=== PATIENT | male | born 1980 | race African-American/Black ===

== ENCOUNTER 2017-07-19 11:47 | Emergency (ER) | payer OTHER ==
--- NOTE | 2017-07-19 12:12 | ED Physician Documentation ---
Upper Extremity Problem - HISTORIAN Historian: patient - HPI Stated Complaint: R Hand pain Chief Complaint: Upper Extremity Problem Additional Information: Right forearm and hand aching pain for 2 1/2 years. Worse in the morning and gets better by afternoon. Shaking sometimes helps it. Right handed. Denies injury. Says he was in long-term at the time. Sleeps prone with both arms folded under chest, bu only right arm bothers him. No other treatment and has not seen anyone for this. 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 Thinks he has blood clots. - ROS CONST: no problems - PAST HX Past History: none Allergies/Adverse Reactions: Allergies Allergy/AdvReac Type Severity Reaction Status Date / Time No Known Allergies Allergy Verified 07/19/17 12:01 Home Medications: Ambulatory Orders Medication Instructions Recorded NK [NK] 07/19/17 - SOCIAL HX Smoking History: cigarettes - FAMILY HX Family History: no significant history - VITAL SIGNS Vital Signs: Vital Signs Temp Pulse Resp BP Pulse Ox 97.4 F L 66 16 124/74 99 07/19/17 11:55 07/19/17 11:55 07/19/17 11:55 07/19/17 11:55 07/19/17 11:55 - REVIEWED ASSESSMENTS Nursing Assessment Reviewed: Yes Vitals Reviewed: Yes Upper Extremity Problem - EXAM General Appearance: no acute distress, alert Skin: warm/dry, normal color Shoulder Exam: normal inspection, no evidence of injury, normal ROM Elbow/Forearm Exam: normal inspection, non-tender, no evidence of injury, normal ROM Wrist Exam: normal inspection, non-tender, no evidence of injury (Ne Tinel's) Hand Exam: normal inspection, non-tender, no evidence of injury Neuro/Tendon: normal sensation, normal motor functions, normal tendon functions , no evidence tendon injury EENT: eye inspection normal, ENT inspection normal Vascular: no vascular compromise (right radial pulse 2+) Peripheral: sensation nml, motor nml Central: CN's nml as tested, motor nml, sensation nml Respiratory: no resp. distress Discharge Clincal Impression: Arm pain Qualifiers: Laterality: right Qualified Code(s): M79.601 - Pain in right arm Referrals: Primary Doctor,No [Primary Care Provider] - 2 Days Condition: Fair Disposition: HOME, SELF-CARE Decision to Admit: NO Decision Time: 12:15
[2017-07-19 12:51] VITALS: BP 124/74
== END 2017-07-19 12:22 | disposition home or self-care (01) ==
LOC: ED 11:47
DX: M79.601 Pain in right arm (principal)
CPT/HCPCS: 99282

== ENCOUNTER 2017-08-26 21:48 | Emergency (ER) | payer SELFPAY ==
--- NOTE | 2017-08-26 21:57 | ED Physician Documentation ---
General Adult - HISTORIAN Historian: patient - HPI Stated Complaint: "hot flashes" Chief Complaint: General Adult Onset: days ago (5) Timing: still present, worse Severity: mild Further Comments: yes (he reports that he started to feel bad about 5 days ago with congestion, fever, chills and fatigue. He has been taking OTC meds with aide in fever but is still having chills. He states he has some swollen lymph nodes in his throat and his groin he felt today. No urinary symtpoms. No N/V/D) - ROS CONST: fever, sweating EYES/ENT: sore throat, nasal drainage, nasal congestion CVS/RESP: cough GI/: denies: abdominal pain, vomiting, nausea MS/SKIN/LYMPH: denies: rash NEURO/PSYCH: headache - PAST HX Past History: none Other History: none Surgeries/Procedures: none Immunizations: UTD Allergies/Adverse Reactions: Allergies Allergy/AdvReac Type Severity Reaction Status Date / Time No Known Allergies Allergy Verified 07/19/17 12:01 Home Medications: Ambulatory Orders Medication Instructions Recorded NK [NK] 07/19/17 - SOCIAL HX Smoking History: cigarettes Alcohol Use: none Drug Use: none - FAMILY HX Family History: No - VITAL SIGNS Vital Signs: Vital Signs Temp Pulse Resp BP Pulse Ox 124/74 07/19/17 12:22 - REVIEWED ASSESSMENTS Nursing Assessment Reviewed: Yes Vitals Reviewed: Yes General Adult Physical Exam - PHYSICAL EXAM GENERAL APPEARANCE: no distress EENT: no signs of dehydration, pharyngeal erythema, TM erythema (left ear ), other (Sinus pain with palpation ) NECK: normal inspection RESPIRATORY: no resp distress, chest non-tender, wheezes (expiratory ) CVS: reg rate & rhythm, heart sounds normal, equal pulses, no murmur ABDOMEN: soft, no organomegaly, normal bowel sounds, no distension, non-tender BACK: normal inspection SKIN: warm/dry, normal color, other (no palpable lymph nodes at this time ) EXTREMITIES: non-tender, edema NEURO: oriented X3, CN's nml as tested, motor nml, sensation nml, mood/affect nml Discharge Clincal Impression: Sinusitis Qualifiers: Sinusitis location: frontal Chronicity: acute Recurrence: not specified as recurrent Qualified Code(s): J01.10 - Acute frontal sinusitis, unspecified Referrals: Primary Doctor,No [Primary Care Provider] - 2 Days Additional Instructions: 1. Augmentin 875 mg/125 mg Take 1 by mouth BID x 10 days 2. Medrol Dose pack as directed 3. continue OTC meds for symptom control 4. Increase fluids 5. STOP smoking 6. See PCP in 10 days for follow up on symptoms 7. Return to ER for any concerns Condition: Stable Disposition: 01 HOME, SELF-CARE Decision to Admit: NO Date of Decison to Admit: 08/26/17 Decision Time: 22:19
[2017-08-26] MEDS ORDERED: AMOXICILLIN/POT 875/125 1 EACH PO ONE (22:19)
[2017-08-26] MEDS ORDERED: predniSONE 20 MG TABLET PO ONE (22:20)
[2017-08-26 22:22] VITALS: BP 130/73
== END 2017-08-26 22:29 | disposition home or self-care (01) ==
LOC: ED 21:48
DX: J01.10 Acute frontal sinusitis, unspecified (principal)
CPT/HCPCS: 99282

== ENCOUNTER 2018-02-28 08:08 | Emergency (ER) | payer SELFPAY ==
--- NOTE | 2018-02-28 08:15 | ED Physician Documentation ---
General Adult - HISTORIAN Historian: patient - HPI Stated Complaint: sores in mouth and privates Chief Complaint: General Adult Onset: days ago (2) Timing: still present Severity: moderate Further Comments: yes (he claims he has herpes. He states he has sores on his penis and in his mouth. He has a PCP appt 03.15.2018. He has taken acyclovir or valtrex occasionally and he did well on both. No new sexual partners) - ROS CONST: no problems MS/SKIN/LYMPH: rash - PAST HX Past History: other (herpes ) Immunizations: UTD Allergies/Adverse Reactions: Allergies Allergy/AdvReac Type Severity Reaction Status Date / Time No Known Allergies Allergy Verified 02/28/18 08:25 Home Medications: Ambulatory Orders Medication Instructions Recorded NK 07/19/17 - SOCIAL HX Smoking History: non-smoker Alcohol Use: none Drug Use: none - FAMILY HX Family History: No - VITAL SIGNS Vital Signs: Vital Signs Temp Pulse Resp BP Pulse Ox 130/73 08/26/17 22:45 - REVIEWED ASSESSMENTS Nursing Assessment Reviewed: Yes Vitals Reviewed: Yes General Adult Physical Exam - PHYSICAL EXAM GENERAL APPEARANCE: no distress EENT: eye inspection normal NECK: normal inspection RESPIRATORY: no resp distress, chest non-tender, breath sounds normal CVS: reg rate & rhythm, heart sounds normal ABDOMEN: soft, no distension BACK: normal inspection SKIN: warm/dry, other (several small open areas on the inside upper lip and genitals ) NEURO: oriented X3 Discharge Clincal Impression: Herpes Referrals: Primary Doctor,No [Primary Care Provider] - 2 Days Comments: 1. Valtrex 1 gm daily x 5 days 2. Safe sex 3. Follow up with PCP as scheduled 4. Return to ER for any concerns Condition: Stable Disposition: 01 HOME, SELF-CARE Decision to Admit: NO Date of Decison to Admit: 02/28/18 Decision Time: 08:30
[2018-02-28 08:24] VITALS: BP 129/69
== END 2018-02-28 08:33 | disposition home or self-care (01) ==
LOC: ED 08:08
DX: B00.9 Herpesviral infection, unspecified (principal)
CPT/HCPCS: 99281; 99282

== ENCOUNTER 2018-04-08 23:07 | Emergency (ER) | payer OTHER ==
[2018-04-08 23:33] VITALS: BP 138/81
[2018-04-08] MEDS ORDERED: KETOROLAC TROMETHAMINE 60 MG/2 ML VIAL IM ONE (23:36)
[2018-04-08] MEDS ORDERED: BACLOFEN 10 MG TABLET PO ONE (23:37)
--- NOTE | 2018-04-08 23:39 | ED Physician Documentation ---
General Adult - HISTORIAN Historian: patient - HPI Stated Complaint: NECK PAIN Chief Complaint: General Adult Further Comments: yes (37 year old male patient presents with right side neck pain and shoulder discomfort. Patient reports on going pain intermittenly for the past 6 months. Was seen in Oct at [facility] for similar pain, prescriptions for naproxen and flexeril.) - ROS CONST: no problems EYES/ENT: none CVS/RESP: none GI/: none NEURO/PSYCH: denies: headache - PAST HX Past History: other (lipoma - right thorasic back area. ) Allergies/Adverse Reactions: Allergies Allergy/AdvReac Type Severity Reaction Status Date / Time No Known Allergies Allergy Verified 02/28/18 08:25 Home Medications: Ambulatory Orders Medication Instructions Recorded NK 07/19/17 - SOCIAL HX Smoking History: cigarettes - FAMILY HX Family History: No - VITAL SIGNS Vital Signs: Vital Signs Temp Pulse Resp BP Pulse Ox 98.4 F 89 16 138/81 96 04/08/18 23:07 04/08/18 23:07 04/08/18 23:07 04/08/18 23:07 04/08/18 23:07 - REVIEWED ASSESSMENTS Nursing Assessment Reviewed: Yes Vitals Reviewed: Yes ED Results Lab/Radiology - Orders Orders: ED Orders Category Date Time Status Baclofen [Lioresal] Med 04/08/18 23:37 Once 20 mg PO NOW ONE Ketorolac Tromethamine [Toradol] Med 04/08/18 23:36 Once 60 mg IM NOW ONE General Adult Physical Exam - PHYSICAL EXAM GENERAL APPEARANCE: mild distress EENT: eye inspection normal, BREANNE RESPIRATORY: no resp distress, chest non-tender, breath sounds normal CVS: reg rate & rhythm, heart sounds normal, equal pulses, no murmur, no gallop, PMI nml, no JVD, no friction rub, 24 ABDOMEN: soft, no organomegaly, normal bowel sounds, no abdominal bruit, no d istension BACK: normal inspection, no CVA tenderness, other (muscle tenderness in right paraspinous muscles at C6-T3. LIpoma noted in right thorasic area at T7-8; 8 cm, soft, mobile.) SKIN: normal color, warm/dry, NR, INT, PAL, DR EXTREMITIES: non-tender, normal range of motion, no evidence of injury, no edema, J, [employer] NEURO: oriented X3, motor nml, sensation nml, mood/affect nml Discharge Clincal Impression: Myalgia, Muscle spasm Referrals: Primary Doctor,No [Primary Care Provider] - 2 Days Additional Instructions: Ice Rest You may use Tylenol every 4hour as needed for pain. Limit your dose to less than 4 G per day. Do not take ibuprofen, aleve, naproxen or any other NSAID while you are on toradol. (ketoralac) You may want to try massage, over the counter lidocaine patches, biofreeze, naz vega or aspercream . If you are continuing to have significant pain on day 3-4; see your PCP for re- evaluation and additional xrays. Condition: Stable Disposition: 01 HOME, SELF-CARE Decision to Admit: NO Decision Time: 23:42
== END 2018-04-08 23:54 | disposition home or self-care (01) ==
LOC: ED 23:07
DX: M79.10 Myalgia, unspecified site (principal)
CPT/HCPCS: 96372; 99282; 99283; J1885

== ENCOUNTER 2018-11-11 17:28 | Emergency (ER) | payer SELFPAY ==
--- NOTE | 2018-11-11 17:30 | ED Physician Documentation ---
General Adult - HISTORIAN Historian: patient - HPI Stated Complaint: fever, fatigue and body aches Chief Complaint: General Adult Onset: days ago (5) Timing: still present Severity: moderate Further Comments: yes (HE states body aches and fever started 5 days ago. He has cough) - ROS CONST: fever, sweating EYES/ENT: none GI/: denies: abdominal pain MS/SKIN/LYMPH: other (area of skin concern on right lateral chest ) - PAST HX Past History: none Immunizations: UTD Allergies/Adverse Reactions: Allergies Allergy/AdvReac Type Severity Reaction Status Date / Time No Known Allergies Allergy Verified 11/11/18 18:20 Home Medications: Ambulatory Orders Medication Instructions Recorded Ranitidine HCl [Zantac] 75 mg PO 11/11/18 - SOCIAL HX Smoking History: non-smoker Alcohol Use: none Drug Use: none - FAMILY HX Family History: No - VITAL SIGNS Vital Signs: Vital Signs Temp Pulse Resp BP Pulse Ox 138/81 04/09/18 00:12 - REVIEWED ASSESSMENTS Nursing Assessment Reviewed: Yes Vitals Reviewed: Yes Progress - Progress Progress: 2000: discussed results and plan - he is agreeable DG ED Results Lab/Radiology - Radiology Radiology Impressions: CHEST 1 VIEW HISTORY: SOB, CHEST PAIN. FINDINGS: Erect AP portable chest x-ray dated November 11, 2018 at 1743 with 2 images obtained demonstrates lungs to be clear of focal infiltrates and expanded bilaterally. Cardiac silhouette and bony thorax are unremarkable. IMPRESSION: No active intrathoracic disease seen. Electronically signed on Nov 11, 2018 6:26:44 PM CDT by: Osman Galan General Adult Physical Exam - PHYSICAL EXAM GENERAL APPEARANCE: no distress EENT: eye inspection normal, pharynx normal, no signs of dehydration NECK: normal inspection RESPIRATORY: no resp distress, chest non-tender, breath sounds normal CVS: reg rate & rhythm, heart sounds normal ABDOMEN: soft, normal bowel sounds, no distension BACK: normal inspection, no CVA tenderness SKIN: warm/dry, other (4 cm x 4 cm red raised area with a draining center - area is not firm no streaking drainage is yellow in color - minimal amount ) EXTREMITIES: non-tender, normal range of motion, no evidence of injury, no edema NEURO: oriented X3 Discharge Clincal Impression: Abscess Referrals: Primary Doctor,No [Primary Care Provider] - 2 Days Comments: 1. Bactrim DS take 1 by mouth twice daily x 10 days 2. Watch for increase size (after 24 hours) 3. OTC meds as directed as needed for fever or symptom management 4. Follow up with PCP in 2 days 5. Return to ER for any increasing concerns Condition: Stable Disposition: 01 HOME, SELF-CARE Decision to Admit: NO Date of Decison to Admit: 11/11/18 Decision Time: 20:19
[2018-11-11] MEDS: IPRATROPIUM/ALBUTEROL SULFATE 3 ML AMPUL.NEB NEB ONE (18:15)
[2018-11-11] MEDS: KETOROLAC TROMETHAMINE 30 MG/1ML VIAL IV ONE (18:41)
[2018-11-11] MEDS: 0.9 % SODIUM CHLORIDE 1,000 ML IV ONE (18:41)
[2018-11-11 18:45] LABS: BASOPHILS % 0.5 % (0.0-1.5); NEUTROPHILS # 4.3 # k/uL (1.4-7.7)
[2018-11-11 18:52] LABS: eGFR (Non-African) > 60
[2018-11-11] MEDS: ACETAMINOPHEN 325 MG TABLET PO ONE (19:40)
[2018-11-11] MEDS: ACETAMINOPHEN 500 MG TABLET ONE (19:43)
[2018-11-11] MEDS: SULFAMETHOXAZOLE/TRIMETHOPRIM 800/160MG TAB PO ONE (19:56)
[2018-11-11] MEDS: BENZONATATE 100 MG CAPSULE PO ONE (20:15)
[2018-11-11 20:31] VITALS: BP 130/69
--- NOTE | 2018-11-13 14:44 | Diagnostic Imaging Report ---
TEENA MEDEIROS [facility] [id number] [facility] [address] [place], [place]. [address] Report Submission Date: Nov 11, 2018 6:26:44 PM CDT Patient Study Name: YAA GATES Date: Nov 11, 2018 5:42:12 PM CDT Modality Type: DX Gender: M Description: CHEST 1VIEW : 84 Institution: [facility] Physician: TEENA MEDEIROS CHEST 1 VIEW HISTORY: SOB, CHEST PAIN. FINDINGS: Erect AP portable chest x-ray dated November 11, 2018 at 1743 with 2 images obtained demonstrates lungs to be clear of focal infiltrates and expanded bilaterally. Cardiac silhouette and bony thorax are unremarkable. IMPRESSION: No active intrathoracic disease seen. Electronically signed on Nov 11, 2018 6:26:44 PM CDT by: Osman DUMONT
== END 2018-11-11 20:20 | disposition home or self-care (01) ==
LOC: ED 17:28
DX: J86.9 Pyothorax without fistula (principal)
CPT/HCPCS: 71045; 80053; 83605; 85025; 87040; 87070; 87400; 87880; 94640; 94760; 96361; 99284; A9270; J1885; J7030; 93005; S1016